=== PATIENT | male | born 1995 | race Native Hawaiian/Other Pacific Islander ===

== ENCOUNTER 2017-06-22 19:41 | Emergency (ER) | payer BC ==
[~2017-06-22] VITALS: Ht 170.2 cm; Wt 70.8 kg
[2017-06-22 20:00] VITALS: BP 120/75; TEMP 99.4
== END 2017-06-22 20:30 | disposition home or self-care (01) ==
LOC: ED 19:41
DX: M79.645 Pain in left finger(s) (principal); W22.8XXA Striking against or struck by other objects, initial encounter
CPT/HCPCS: 99281

== ENCOUNTER 2017-06-26 15:41 | Emergency (ER) | payer BC ==
[~2017-06-26] VITALS: Ht 170.2 cm; Wt 70.8 kg
[2017-06-26 15:52] VITALS: TEMP 98.3
[2017-06-26 17:25] VITALS: BP 104/66
== END 2017-06-26 17:20 | disposition home or self-care (01) ==
LOC: ED 15:41
DX: S60.351A Superficial foreign body of right thumb, initial encounter (principal); W45.8XXA Other foreign body or object entering through skin, initial encounter; Y92.828 Other wilderness area as the place of occurrence of the external cause
CPT/HCPCS: 99282